=== PATIENT | female | born 1985 | race Native Hawaiian/Other Pacific Islander ===

== ENCOUNTER 2021-05-01 13:01 | Outpatient (CLI) | payer OTHER ==
[~2021-05-01] VITALS: Ht 175.3 cm; Wt 100.7 kg
== END 2021-05-01 18:47 | disposition home or self-care (01) ==
LOC: INF 13:01
PROVIDERS: ATTEND Nurse Practitioner Family
DX: Z23 Encounter for immunization (principal); U07.1 COVID-19
CPT/HCPCS: 96365; M0244